=== PATIENT | female | born 1965 | race Caucasian/White ===

== ENCOUNTER 2017-02-09 12:33 | Emergency (ER) | payer BC ==
[2017-02-09 12:45] VITALS: BP 131/81
[2017-02-09] MEDS ORDERED: Ketorolac INJ* 30 MG/ML 1 ML VIAL IM ONE (13:09)
--- NOTE | 2017-02-09 13:17 | UC ---
Back Pain HPI - History of Current Complaint Chief Complaint: UCBackPain Stated Complaint: BACK PAIN Time Seen by Provider: 02/09/17 12:57 Hx Obtained From: Patient Onset/Duration: Gradual Onset, Lasting Days Timing: Constant Severity Initially: Moderate Severity Currently: Severe Back Pain: Is Discrete @ - low back. No radiation. Character: Dull, Aching Aggravating: Movement, Lifting, Bending Alleviating: Rest, Position Associated Signs And Symptoms: Negative: Swelling, Redness, Bruising, Fever, Weakness, Numbness, Tingling, Abdominal Pain, Flank Pain, Bladder Incontinence, Bowel Incontinence, Pain with Weight Bearing Related History: Similar Episode Dx As - she states this is similar to prior episode 2 years ago when under stress and she had toradol and got better. - Allergies/Home Medications Allergies/Adverse Reactions: Allergies Allergy/AdvReac Type Severity Reaction Status Date / Time Diazepam [From Valium] Allergy Rash Verified 02/09/17 12:45 Morphine Allergy Nausea And Verified 02/09/17 12:45 Vomiting Home Medications: Home Medications Methylphenidate ER TAB* [Concerta ER TAB*] 54 mg DAILY 02/09/17 [History Confirmed 02/09/17] PMH/Surg Hx/FS Hx/Imm Hx Respiratory History Of: Reports: Asthma - EXERCISE INDUCED ASTHMA - Surgical History Surgical History: Yes Surgery Procedure, Year, and Place: . hysterectomy - Family History Known Family History: Positive: Other - no spine related disease. - Social History Occupation: Employed Full-time Alcohol Use: Weekly Substance Use Type: None Smoking Status (MU): Never Smoked Tobacco Review of Systems All Other Systems Reviewed And Are Negative: Yes Physical Exam Triage Information Reviewed: Yes Appearance: Well-Appearing, Well-Nourished, Pain Distress - there is obvious pain with changes in position and with movements. Vital Signs: Initial Vital Signs Temp 99.2 F 02/09/17 12:41 Pulse 96 02/09/17 12:41 Resp 16 02/09/17 12:41 BP 131/81 02/09/17 12:41 Pulse Ox 100 02/09/17 12:41 Vital Signs Reviewed: Yes Eye Exam: Normal ENT Exam: Normal Neck exam: Normal Respiratory Exam: Normal Cardiovascular Exam: Normal Abdominal Exam: Normal Bowel Sounds: Positive: Present Musculoskeletal Exam: Other - There is midline lower back tenderness. no spasm. she is able to ambulate and there is no obvious weakness. Straight leg raise increases pain but does not send pain down the legs. Neurological Exam: Normal Neurological: Positive: Alert, Muscle Tone Normal, Fatigued Skin Exam: Normal Back Pain Course/Dx - Course Course Of Treatment: PT note written, nsaids and tylenol, f/u with orthopedics if not improving. she has an orthopedic doctor in [place] if needed. No signs of cord compression or infectious source. - Differential Dx/Diagnosis Differential Diagnosis/HQI/PQRI: Aneurysm, Arthritis, Cauda Equina Syndrome, Compressive Cord Syndrome, Epidural Abscess, Fracture, Herniated Disc, Neoplasm , Osteomyelitis, Osteoporosis, Renal Colic, Septic Arthritis, Strain, Sprain Provider Diagnoses: acute low back pain Discharge - Discharge Plan Condition: Good Disposition: HOME Patient Education Materials: Low Back Strain (ED), Acute Low Back Pain (ED) Referrals: Dm Dewey PA [Primary Care Provider] - If Needed
== END 2017-02-09 13:37 | disposition home or self-care (01) ==
LOC: UCCORT 12:33
DX: M54.5 Low back pain (principal); J45.990 Exercise induced bronchospasm; Z88.5 Allergy status to narcotic agent; Z88.8 Allergy status to other drugs, medicaments and biological substances; Z90.710 Acquired absence of both cervix and uterus
CPT/HCPCS: 96372; 99211; G0463; J1885